=== PATIENT | female | born 1990 | race African-American/Black ===

== ENCOUNTER 2021-05-15 20:47 | Emergency (ER) | payer MEDICAID, OTHER ==
[~2021-05-15] VITALS: Ht 167.6 cm; Wt 149.2 kg
[2021-05-15] MEDS ORDERED: TRAMADOL HCL 50 MG TAB PO STA (21:07)
[2021-05-15] MEDS ORDERED: TRAMADOL HCL 50 MG TAB ONE (21:44)
[2021-05-15] MEDS ORDERED: ULTRAM50 MG PO (22:11)
[2021-05-15 22:31] VITALS: BP 139/93
== END 2021-05-15 22:30 | disposition home or self-care (01) ==
LOC: FSED 21:17
DX: S93.401A Sprain of unspecified ligament of right ankle, initial encounter (principal); X50.1XXA Overexertion from prolonged static or awkward postures, initial encounter; Y93.01 Activity, walking, marching and hiking; Y92.89 Other specified places as the place of occurrence of the external cause; F17.210 Nicotine dependence, cigarettes, uncomplicated
CPT/HCPCS: 99283

== ENCOUNTER 2021-09-02 16:58 | Emergency (ER) | payer MEDICAID ==
[~2021-09-02] VITALS: Ht 167.6 cm; Wt 149.2 kg
[~2021-09-02 16:58] MED LIST: ULTRAM50 MG PO
[2021-09-02] MEDS ORDERED: ACETAMINOPHEN 325 MG TAB PO ONE ×2 (17:15→17:30)
[2021-09-02] MEDS ORDERED: SODIUM CHLORIDE 0.9% 1000ML 1,000 ML IV STA ×2 (17:18→18:06)
[2021-09-02] MEDS ORDERED: CEFTRIAXONE 1 GM VIAL IV ONE (17:30)
[2021-09-02] MEDS ORDERED: DEXAMETHASONE SOD PHOS INJ 4 MG/ML SDV ONE (17:35)
[2021-09-02] MEDS ORDERED: SODIUM CHLORIDE 0.9% 1000ML 1,000 ML ONE ×2 (17:35→18:20)
[2021-09-02] MEDS ORDERED: ACETAMINOPHEN 325 MG TAB ONE (17:35)
[2021-09-02] MEDS ORDERED: IBUPROFEN 600 MG TAB ONE (17:35)
[2021-09-02] MEDS ORDERED: IBUPROFEN 600 MG TAB PO ONE (17:45)
[2021-09-02] MEDS ORDERED: ACETAMINOPHEN500 MG PO (17:51)
[2021-09-02] MEDS ORDERED: CEFDINIR300 MG PO (17:51)
[2021-09-02] MEDS ORDERED: IBUPROFEN200 MG PO (17:51)
[2021-09-02] MEDS ORDERED: DEXAMETHASONE SOD PHOS INJ 4 MG/ML SDV IM ONE (18:00)
[2021-09-02] MEDS ORDERED: CEFTRIAXONE 1 GM VIAL ONE (18:02)
== END 2021-09-02 18:39 | disposition home or self-care (01) ==
LOC: FSED 17:10
DX: R50.9 Fever, unspecified (principal); U07.1 COVID-19; R00.0 Tachycardia, unspecified; R51.9 Headache, unspecified; Z71.89 Other specified counseling
CPT/HCPCS: 80053; 81003; 85025; 99283; J0696; J1100; J7030; U0002